=== PATIENT | female | born 1975 ===

== ENCOUNTER 2018-05-16 09:45 | Inpatient (IN) | payer OTHER ==
[~2018-05-16] VITALS: Ht 162.6 cm; Wt 63.5 kg
[2018-05-16] MEDS ORDERED: INTESTINEX680 M1 PO (11:26)
== END 2018-05-24 15:49 | disposition home or self-care (01) | DRG 331 ==
LOC: O/R 05-21 06:10 → SURG 05-21 06:10 → SURH 05-21 09:45 → SURG 05-21 14:17
PROVIDERS: Colon & Rectal Surgery
PROC: 07TC4ZZ Resection of Pelvis Lymphatic, Percutaneous Endoscopic Approach (ICD-10-PCS; 2018-05-21)
PROC: 0DJD8ZZ Inspection of Lower Intestinal Tract, Via Natural or Artificial Opening Endoscopic (ICD-10-PCS; 2018-05-21)
PROC: 0DTM4ZZ Resection of Descending Colon, Percutaneous Endoscopic Approach (ICD-10-PCS; principal; 2018-05-21 13:30)
DX: C19 Malignant neoplasm of rectosigmoid junction (principal); R59.0 Localized enlarged lymph nodes; D50.0 Iron deficiency anemia secondary to blood loss (chronic); R73.01 Impaired fasting glucose

== ENCOUNTER → 2018-06-19 | Day surgery (SDC) | payer OTHER ==
[~2018-06-19] MED LIST: INTESTINEX680 M1 PO
== END | disposition home or self-care (01) ==
LOC: ADM 06-14 15:30 → CIR.AMB 05:30
DX: C18.4 Malignant neoplasm of transverse colon (principal)
CPT/HCPCS: 36561; C1751

== ENCOUNTER 2019-03-12 06:00 | Day surgery (SDC) | payer OTHER ==
[~2019-03-12 06:00] MED LIST changes: +DECADRON IV; +GABAPENT PO; +HEPARIN IV; +PEPCID40 MG IV; +ZOFRAN PO; +[UNRECOGNIZED DRUG - OTHER] IV; +[UNRECOGNIZED DRUG - OTHER] IV
== END 2019-03-12 10:10 | disposition home or self-care (01) ==
LOC: CIR.AMB 06:00
DX: C18.4 Malignant neoplasm of transverse colon (principal)
CPT/HCPCS: 36561; C1751

== ENCOUNTER 2019-12-12 06:00 | Day surgery (SDC) | payer OTHER | END 2019-12-12 11:12 | disposition home or self-care (01) | LOC: AMB-ENDOS 06:00 → ADM 08:45 → AMB-ENDOS 11:12 | DX: K62.89 Other specified diseases of anus and rectum (principal); K64.1 Second degree hemorrhoids ==